=== PATIENT | male | born 1960 | race Caucasian/White ===

== ENCOUNTER 2017-10-19 02:47 | Inpatient (IN) | payer MEDICARE, OTHER ==
[~2017-10-19] VITALS: Ht 175.3 cm; Wt 141.4 kg
[2017-10-19 05:10] VITALS: BP 171/86; PULSE 93; RESP 18; TEMP 97.7; O2SAT 97
[2017-10-19] MEDS ORDERED: ALUMINUM/MAGNESIUM/SIMETH 30 ML CUP PO PRN (06:15)
[2017-10-19] MEDS ORDERED: ACETAMINOPHEN 325 MG TAB PO PRN (06:15)
[2017-10-19] MEDS ORDERED: MAGNESIUM HYDROXIDE SUSP 30 ML CUP PO PRN (06:15)
[2017-10-19] MEDS ORDERED: DULoxetine HCl DR 60 MG CAP PO SCH (13:15)
[2017-10-19] MEDS: busPIRone HCL 10 MG TAB PO SCH ×2 (13:15→21:36)
[2017-10-19] MEDS ORDERED: LORazepam 1 MG TAB PO PRN (13:15)
[2017-10-19] MEDS: METOPROLOL SUCCINATE 50 MG EXTENDED RELEASE TAB PO SCH (13:30)
[2017-10-19] MEDS ORDERED: hydrOXYzine HCL 50 MG TAB PO PRN (13:45)
[2017-10-19] MEDS: metFORMIN HCL 500 MG TAB PO SCH (18:00)
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
[2017-10-19] MEDS: INSULIN DETEMIR 100 UNITS/ML VIAL SQ SCH (21:00)
[2017-10-19] MEDS: DULoxetine HCl DR 60 MG CAP PO SCH (21:35)
[2017-10-19] MEDS: QUEtiapine FUMARATE 100 MG TAB PO SCH (21:35)
[2017-10-20 06:00] VITALS: BP 159/82; PULSE 65; RESP 20; TEMP 98.1; O2SAT 92
[2017-10-20] MEDS: DULoxetine HCl DR 60 MG CAP PO SCH ×2 (08:49→20:37)
[2017-10-20] MEDS: busPIRone HCL 10 MG TAB PO SCH ×2 (08:49→20:36)
[2017-10-20] MEDS: metFORMIN HCL 500 MG TAB PO SCH ×2 (08:49→17:40)
[2017-10-20] MEDS: METOPROLOL SUCCINATE 50 MG EXTENDED RELEASE TAB PO SCH (08:49)
[2017-10-20] MEDS ORDERED: POTA-163 PO (11:15)
[2017-10-20] MEDS ORDERED: LOSA100T PO (11:15)
[2017-10-20] MEDS ORDERED: TAMS5CAP PO (11:15)
[2017-10-20] MEDS ORDERED: AMLO10TA2 PO (11:15)
[2017-10-20] MEDS ORDERED: GLUCAGON 1 MG/ML VIAL OTHER PRN (12:15)
[2017-10-20] MEDS ORDERED: DEXTROSE 50% IN WATER 50 ML VIAL(D50) IV PUSH PRN (12:15)
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
--- NOTE | 2017-10-20 13:52 | HHI.PYPN ---
Subjective Remarks Patient was seen and case discussed with nursing. Patient describes his suicidal ideation before admission. He says he drove to a hotel sat in the parking lot before deciding to go to the hospital. He denies suicidal ideation however, he is looking about the unit and describes various methods of killing himself. Nursing and I and patient both agrees that he would benefit from a 1- 1. He describes various life stressors and an increase in mood swings and subsequent guilty feelings about his behavior. Mental Status Examination Appearance: Appropriate Consciousness: Alert Orientation: x4 Motor Activity: Normal gait Speech: Unremarkable Language: Adequate Fund of Knowledge: Adequate Attention and Concentration: Adequate Memory: Unremarkable Mood: Sad, Anxious Affect: Anxious Thought Process & Associations: Intact Thought Content: Appropriate Hallucination Type: None Suicidal Ideation: No Suicidal Plan: Yes Homicidal Ideation: No Homicidal Plan: No Homicidal Intention: No Insight: Fair Judgment: Impulsive Results Vitals/IOs Vital Signs Date Time Temp Pulse Resp B/P (MAP) Pulse Ox O2 Delivery O2 Flow Rate FiO2 10/20/17 06:00 98.1 65 20 159/82 (517) 92 Assessment & Plan Problem List: (1) Major depressive disorder, recurrent severe without psychotic features ICD Codes: F33.2 - Major depressive disorder, recurrent severe without psychotic features Assessment & Plan Order 1-1 Justification for Cont. Inpt. Patient would decompensate in a less restrictive setting Hector Kearney DO Oct 20, 2017 13:52
[2017-10-20 13:59] LABS: AUTOMATED NEUTROPHIL # 6.1 TH/MM3 (1.8-7.7); BASOPHIL # 0.1 TH/MM3 (0-0.2); BASOPHIL % 0.6 % (0.0-2.0); EOSINOPHIL # 0.4 TH/MM3 (0-0.4); EOSINOPHIL % 4.3 % (0.0-4.0); HEMOGLOBIN 15.4 GM/DL (13.0-17.0); LYMPH % 29.2 % (9.0-44.0); MEAN CELL VOLUME 91.2 FL (80.0-100.0); MEAN CORPUSCULAR HEMOGLOBIN 31.3 PG (27.0-34.0); MEAN CORPUSCULAR HGB CONC 34.3 % (32.0-36.0); MEAN PLATELET VOLUME 9.1 FL (7.0-11.0); MONO % 6.6 % (0.0-8.0); MONOCYTE # 0.7 TH/MM3 (0-0.9); NEUT % 59.3 % (16.0-70.0); PLATELET COUNT 286 TH/MM3 (150-450); RED BLOOD COUNT 4.93 MIL/MM3 (4.50-5.90); RED CELL DISTRIBUTION WIDTH 14.1 % (11.6-17.2); WHITE BLOOD COUNT 10.3 TH/MM3 (4.0-11.0)
[2017-10-20 14:24] LABS: BICARBONATE 29.7 MEQ/L (21.0-32.0); BLOOD UREA NITROGEN 10 MG/DL (7-18); CALCIUM 9.8 MG/DL (8.5-10.1); CHLORIDE 102 MEQ/L (98-107); CREATININE 1.12 MG/DL (0.60-1.30); GLOMERULAR FILTRATION RATE 68 ML/MIN (>89); GLUCOSE,RANDOM 142 MG/DL (74-106); SODIUM (NA) 142 MEQ/L (136-145)
[2017-10-20] MEDS ORDERED: LOPERAMIDE HCL 2 MG CAP PO PRN (14:45)
[2017-10-20] MEDS: CHOLESTYRAMINE 4 GM PACKET PO SCH (16:49)
[2017-10-20] MEDS: INSULIN ASPART SUPPLEMENTAL SCALE SQ SCH ×2 (17:00→20:38)
[2017-10-20 18:21] VITALS: BP 165/85; PULSE 97; RESP 19; TEMP 98.6; O2SAT 96
[2017-10-20] MEDS ORDERED: cloNIDine HCL 0.1 MG TAB PO PRN (18:45)
[2017-10-20 18:46] VITALS: BP 189/90; PULSE 95
[2017-10-20] MEDS: TAMSULOSIN HCL 0.4 MG CAP PO SCH (20:36)
[2017-10-20] MEDS: QUEtiapine FUMARATE 100 MG TAB PO SCH (20:36)
[2017-10-20] MEDS: POTASSIUM CHLORIDE 20 MEQ CONTROLLED RELEASE TAB PO SCH (20:36)
[2017-10-20] MEDS: ATORVASTATIN 40 MG TAB PO SCH (20:37)
[2017-10-20] MEDS: INSULIN DETEMIR 100 UNITS/ML VIAL SQ SCH (21:00)
[2017-10-21 05:38] VITALS: BP 148/65; PULSE 71; RESP 16; TEMP 97.4; O2SAT 96
[2017-10-21 07:18] LABS: CHOLESTEROL/ HDL RATIO 3.8 RATIO; HDL CHOLESTEROL 33.4 MG/DL (40.0-60.0)
[2017-10-21] MEDS: INSULIN ASPART SUPPLEMENTAL SCALE SQ SCH (07:42)
--- NOTE | 2017-10-21 08:50 | HHI.PYPN ---
Subjective Remarks Patient was seen and case discussed with nursing. Patient now has a one-to- one. Patient notes he has improved that he is no longer thinking of various means of ending his life on the unit. He denies any ideation now or at night. He has made up with his visited him yesterday. Affect is quite anxious. Tolerating his medications well Mental Status Examination Appearance: Appropriate Consciousness: Alert Orientation: Person, Place, Date/Time Motor Activity: Normal gait Speech: Unremarkable Language: Adequate Fund of Knowledge: Adequate Attention and Concentration: Adequate Memory: Unremarkable Mood: Sad, Anxious Affect: Sad, Anxious Thought Process & Associations: Intact, Linear Thought Content: Appropriate Hallucination Type: None Delusion Type: None Suicidal Ideation: No Suicidal Plan: No Suicidal Intention: No Homicidal Ideation: No Homicidal Plan: No Homicidal Intention: No Insight: Fair Judgment: Impulsive Results Labs Test 10/20/17 13:05 10/20/17 13:10 10/21/17 06:15 Thyroid Stimulating Hormone 3rd Gen 1.390 uIU/ML White Blood Count 10.3 TH/MM3 Red Blood Count 4.93 MIL/MM3 Hemoglobin 15.4 GM/DL Hematocrit 45.0 % Mean Corpuscular Volume 91.2 FL Mean Corpuscular Hemoglobin 31.3 PG Mean Corpuscular Hemoglobin Concent 34.3 % Red Cell Distribution Width 14.1 % Platelet Count 286 TH/MM3 Mean Platelet Volume 9.1 FL Neutrophils (%) (Auto) 59.3 % Lymphocytes (%) (Auto) 29.2 % Monocytes (%) (Auto) 6.6 % Eosinophils (%) (Auto) 4.3 % Basophils (%) (Auto) 0.6 % Neutrophils # (Auto) 6.1 TH/MM3 Lymphocytes # (Auto) 3.0 TH/MM3 Monocytes # (Auto) 0.7 TH/MM3 Eosinophils # (Auto) 0.4 TH/MM3 Basophils # (Auto) 0.1 TH/MM3 CBC Comment DIFF FINAL Differential Comment Blood Urea Nitrogen 10 MG/DL Creatinine 1.12 MG/DL Random Glucose 142 MG/DL Calcium Level 9.8 MG/DL Sodium Level 142 MEQ/L Potassium Level 3.7 MEQ/L Chloride Level 102 MEQ/L Carbon Dioxide Level 29.7 MEQ/L Anion Gap 10 MEQ/L Estimat Glomerular Filtration Rate 68 ML/MIN Triglycerides Level 127 MG/DL Cholesterol Level 127 MG/DL LDL Cholesterol 68 MG/DL HDL Cholesterol 33.4 MG/DL Cholesterol/HDL Ratio 3.80 RATIO Vitals/IOs Vital Signs Date Time Temp Pulse Resp B/P (MAP) Pulse Ox O2 Delivery O2 Flow Rate FiO2 10/21/17 05:38 97.4 71 16 148/65 (92) 96 Assessment & Plan Problem List: (1) Major depressive disorder, recurrent severe without psychotic features ICD Codes: F33.2 - Major depressive disorder, recurrent severe without psychotic features Assessment & Plan Continue current treatment plan. Consider DC of one-to-one tomorrow Justification for Cont. Inpt. Patient would decompensate in a less restrictive setting Hector Kearney DO Oct 21, 2017 08:50
[2017-10-21] MEDS: POTASSIUM CHLORIDE 20 MEQ CONTROLLED RELEASE TAB PO SCH ×2 (09:42→20:22)
[2017-10-21] MEDS: TAMSULOSIN HCL 0.4 MG CAP PO SCH ×2 (09:42→20:20)
[2017-10-21] MEDS: metFORMIN HCL 500 MG TAB PO SCH ×2 (09:42→18:00)
[2017-10-21] MEDS: DULoxetine HCl DR 60 MG CAP PO SCH ×2 (09:43→20:19)
[2017-10-21] MEDS: busPIRone HCL 10 MG TAB PO SCH ×2 (09:43→20:20)
[2017-10-21] MEDS: METOPROLOL SUCCINATE 50 MG EXTENDED RELEASE TAB PO SCH (09:43)
[2017-10-21 09:57] LABS: HEMOGLOBIN A1C 6.3 % (4.3-6.0)
--- NOTE | 2017-10-21 13:51 | HHI.PR ---
Subjective Remarks Follow up visit for HTN, DM, diarrhea. Nurse reports that patient's blood sugars have been well controlled, no other concerns or complaints. Patient seen and examined sitting in wheelchair in the day room in no acute distress. He denies any fevers, chills, nausea, vomiting or diarrhea. Reports that he has not had a bowel movement as of today, denies any abdominal pain or discomfort, still passing flatus. Objective Vitals Vital Signs Date Time Temp Pulse Resp B/P (MAP) Pulse Ox O2 Delivery O2 Flow Rate FiO2 10/21/17 05:38 97.4 71 16 148/65 (92) 96 10/20/17 18:46 95 189/90 (123) 10/20/17 18:21 98.6 97 19 165/85 (111) 96 Result Diagram: 10/20/17 1310 10/20/17 1310 Objective Remarks GENERAL: Well-developed, obese male in no acute distress. SKIN: Cool and dry. HEAD: Atraumatic. . EYES: Pupils equal round. No scleral icterus. No injection or drainage. ENT: Nose without bleeding, purulent drainage. Airway patent. NECK: Trachea midline. CARDIOVASCULAR: Regular rate and rhythm without murmurs, gallops, or rubs. RESPIRATORY: Clear to auscultation. Breath sounds equal bilaterally. No wheezes , rales, or rhonchi. GASTROINTESTINAL: Abdomen soft, non-tender, nondistended, obese. No guarding. + Bowel sounds in all quadrants MUSCULOSKELETAL: Extremities without clubbing, cyanosis, or edema. NEUROLOGICAL: Awake and alert, oriented x3. No obvious cranial nerve deficits. Motor and sensory grossly within normal limits. Normal speech. A/P Assessment and Plan 57-year-old male with a past medical history significant for interstitial cystitis, renal calculi, fibromyalgia, diabetes mellitus, hypertension, hyperlipidemia, sleep apnea, PTSD, OCD, depression, and anxiety who presented to the emergency department due to worsening depression and recent argument with his partner. Depression/anxiety PTSD/OCD -Treatment plan per psychiatry Hypertension Hyperlipidemia -BP on admission 171/86, noncompliant with medications for the past 3 days. -Currently on Norvasc and metoprolol for the moment, hypertensive yesterday afternoon, receive as needed clonidine. Resume losartan, 50 mg, if needed increase to his home dose of 100 mg. -Continue home dose statin Diabetes mellitus, well controlled -hemoglobin A1c 6.3 -High-fiber 2000 ADA diet. Blood sugars have been stable, will discontinue Accu-Cheks before meals and at bedtime and sliding scale. Blood sugars only once daily. -Continue Levemir 30 units at bedtime Fibromyalgia -Stable, continue home dose Cymbalta Sleep apnea -CPAP machine at bedtime with one-on-one sitter, okayed by psych Interstitial cystitis -Continue home dose Flomax Chronic diarrhea/IBS -Discussed with patient that this is likely the reason why he is on chronic potassium replacement due to constant diarrhea. TSH within normal limits -High-fiber diet, Imodium as needed, Questran 4 g at 4 PM to prevent interaction with medications. -No diarrhea today, continue current medications. DVT prophylaxis-ambulation Discussed with patient and nurse. Benito Delgadillo Oct 21, 2017 13:51
[2017-10-21] MEDS: CHOLESTYRAMINE 4 GM PACKET PO SCH (16:00)
[2017-10-21 16:50] VITALS: BP 165/80; PULSE 87; RESP 16; TEMP 98.8; O2SAT 95
[2017-10-21] MEDS: QUEtiapine FUMARATE 100 MG TAB PO SCH (20:21)
[2017-10-21] MEDS: ATORVASTATIN 40 MG TAB PO SCH (20:22)
[2017-10-21] MEDS: INSULIN DETEMIR 100 UNITS/ML VIAL SQ SCH (20:22)
[2017-10-22 06:17] VITALS: BP 145/66; PULSE 70; RESP 18; TEMP 97.9; O2SAT 97
[2017-10-22] MEDS ORDERED: LOSARTAN 50 MG TAB PO SCH (09:00)
[2017-10-22] MEDS: TAMSULOSIN HCL 0.4 MG CAP PO SCH (09:25)
[2017-10-22] MEDS: METOPROLOL SUCCINATE 50 MG EXTENDED RELEASE TAB PO SCH (09:25)
[2017-10-22] MEDS: POTASSIUM CHLORIDE 20 MEQ CONTROLLED RELEASE TAB PO SCH (09:25)
[2017-10-22] MEDS: DULoxetine HCl DR 60 MG CAP PO SCH (09:25)
[2017-10-22] MEDS: metFORMIN HCL 500 MG TAB PO SCH (09:25)
[2017-10-22] MEDS: busPIRone HCL 10 MG TAB PO SCH (09:26)
--- NOTE | 2017-10-22 10:21 | HHI.FPPN ---
Subjective Remarks no new complaints "i am feeling better" d/w bp and glucoses d/w RN Objective Vitals Vital Signs Date Time Temp Pulse Resp B/P (MAP) Pulse Ox O2 Delivery O2 Flow Rate FiO2 10/22/17 06:17 97.9 70 18 145/66 (92) 97 10/21/17 16:50 98.8 87 16 165/80 (108) 95 I/O 10/21/17 10/21/17 10/21/17 10/22/17 10/22/17 10/22/17 07:00 15:00 23:00 07:00 15:00 23:00 Intake Total 240 ml Balance 240 ml Intake Oral 240 ml Result Diagram: 10/20/17 1310 10/20/17 1310 Objective Remarks GENERAL: SKIN: Warm and dry. HEAD: Atraumatic. Normocephalic. EYES: Pupils equal and round. No scleral icterus. No injection or drainage. ENT: No nasal bleeding or discharge. Mucous membranes pink and moist. NECK: Trachea midline. No JVD. CARDIOVASCULAR: Regular rate and rhythm. RESPIRATORY: No accessory muscle use. Clear to auscultation. Breath sounds equal bilaterally. GASTROINTESTINAL: Abdomen soft, non-tender, nondistended. Hepatic and splenic margins not palpable. MUSCULOSKELETAL: Extremities without clubbing, cyanosis, or edema. No obvious deformities. NEUROLOGICAL: Awake and alert. No obvious cranial nerve deficits. Motor grossly within normal limits. Five out of 5 muscle strength in the arms and legs. Normal speech. PSYCHIATRIC: Appropriate mood and affect; insight and judgment normal. Medications and IVs Current Medications Medications (Trade) Dose Ordered Sig/Addie Route Start Time Stop Time Status Last Admin (Tylenol) 650 mg Q4H PRN PO 10/19/17 06:15 10/19/17 11:51 (Milk Of Magnesia Liq) 30 ml DAILY PRN PO 10/19/17 06:15 10/19/17 11:52 (Mag-Al Plus Susp Liq) 30 ml Q6H PRN PO 10/19/17 06:15 (Ativan) 1 mg Q6H PRN PO 10/19/17 13:15 (Buspar) 15 mg Q12HR PO 10/19/17 13:15 10/22/17 09:26 (SEROquel) 50 mg HS PO 10/19/17 21:00 10/21/17 20:21 (Cymbalta Dr) 60 mg BID PO 10/19/17 21:00 10/22/17 09:25 (Toprol Xl) 50 mg DAILY PO 10/19/17 13:30 10/22/17 09:25 (Glucophage) 500 mg BIDPC PO 10/19/17 18:00 10/22/17 09:25 (Levemir Inj) 30 units HS SQ 10/19/17 21:00 10/21/17 20:22 (Atarax) 50 mg Q6H PRN PO 10/19/17 13:45 (Norvasc) 10 mg DAILY PO 10/21/17 09:00 10/22/17 09:26 (KCl) 20 meq BID PO 10/20/17 21:00 10/22/17 09:25 (Flomax) 0.4 mg BID PO 10/20/17 21:00 10/22/17 09:25 (Lipitor) 40 mg HS PO 10/20/17 21:00 10/21/17 20:22 (D50w (Vial) Inj) 50 ml UNSCH PRN IV PUSH 10/20/17 12:15 (Glucagon Inj) 1 mg UNSCH PRN OTHER 10/20/17 12:15 (Questran 4 Gm Pkt) 4 gm DAILY@1600 PO 10/20/17 16:00 10/21/17 16:00 (Imodium) 2 mg Q4H PRN PO 10/20/17 14:45 (Catapres) 0.1 mg Q6H PRN PO 10/20/17 18:45 10/20/17 18:49 (Cozaar) 50 mg DAILY PO 10/22/17 09:00 10/22/17 09:26 A/P Assessment and Plan Assessment and Plan 57-year-old male with a past medical history significant for interstitial cystitis, renal calculi, fibromyalgia, diabetes mellitus, hypertension, hyperlipidemia, sleep apnea, PTSD, OCD, depression, and anxiety who presented to the emergency department due to worsening depression and recent argument with his partner. Suicidal/Depression/anxiety PTSD/OCD -Treatment plan per psychiatry Hypertension- increase cozaar to 100 mg qd Hyperlipidemia -BP on admission 171/86, noncompliant with medications for the past 3 days. -Currently on Norvasc and metoprolol for the moment, losartan 50 mg, if needed increase to his home dose of 100 mg. -Continue home dose statin Diabetes mellitus, well controlled -hemoglobin A1c 6.3 -High-fiber 2000 ADA diet. Blood sugars have been stable, will discontinue Accu-Cheks before meals and at bedtime and sliding scale. Blood sugars only once daily. -Continue Levemir 30 units at bedtime Fibromyalgia -Stable, continue home dose Cymbalta Sleep apnea -CPAP machine at bedtime with one-on-one sitter, okayed by psych Interstitial cystitis -Continue home dose Flomax Chronic diarrhea/IBS -Discussed with patient that this is likely the reason why he is on chronic potassium replacement due to constant diarrhea. TSH within normal limits -High-fiber diet, Imodium as needed, Questran 4 g at 4 PM to prevent interaction with medications. -c/o urgent diarrhea DVT prophylaxis-ambulation Discussed with patient and Psychiatrist. Manohar Ramos MD Oct 22, 2017 10:21
--- NOTE | 2017-10-22 13:22 | PD.TTN ---
Patient Problems 1. Discharge planning 2. Medication compliance 3. Knowledge deficit 4. Lack of coping skills Progress Toward Goals Provider Present: Dr. Minnie Alonso, Dr. Tricia Ortega Provider Input: portia rojas. If remains depressed will increase Seroquel Nurse(s) Input: Anxious, Angry, fixated on discharge, paranoid, easily excited. Psychiatric Counselors Present: Denisha Chen LCSW, Gaby Bashir, [facility], Ilan Oconnor Jr., [facility] Group Spec/RT/OT/HAYNES Present: ESTEBAN Miles Group Spec/RT/OT/HAYNES Input: Patient attends select group activities with good participation. Pt is pleasant and cooperative. Discharge Plan To be determined Documentation Scribe: Chasidy Adkins Oct 22, 2017 13:22
[2017-10-22] MEDS ORDERED: QUET1TAB8 PO (15:29)
[2017-10-22] MEDS ORDERED: LEVEMIR SQ (15:29)
[2017-10-22] MEDS ORDERED: LOSA100T PO (15:29)
[2017-10-22] MEDS ORDERED: METO1TAB9 PO (15:29)
[2017-10-22] MEDS ORDERED: CHOL4POW4 PO (15:29)
[2017-10-22] MEDS ORDERED: POTA-163 PO (15:29)
[2017-10-22] MEDS ORDERED: METF500 PO (15:29)
[2017-10-22] MEDS ORDERED: AMLO10TA2 PO (15:29)
[2017-10-22] MEDS ORDERED: TAMS5CAP PO (15:29)
[2017-10-22] MEDS ORDERED: ATOR40TA16 PO (15:29)
[2017-10-22] MEDS ORDERED: BUSP15TA PO (15:29)
[2017-10-22] MEDS ORDERED: DULO1CAP3 PO (15:29)
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
[2017-10-22] MEDS: CHOLESTYRAMINE 4 GM PACKET PO SCH (16:00)
[2017-10-23] MEDS ORDERED: LOSARTAN 50 MG TAB PO SCH (09:00)
== END 2017-10-22 16:50 | disposition home or self-care (01) | DRG 885 ==
LOC: H270 05:10 → H260 17:52
PROVIDERS: ADMIT Student in an Organized Health Care Education/Training Program; ATTEND Student in an Organized Health Care Education/Training Program
DX: F33.2 Major depressive disorder, recurrent severe without psychotic features (principal); N30.10 Interstitial cystitis (chronic) without hematuria; R45.851 Suicidal ideations; I10 Essential (primary) hypertension; M79.7 Fibromyalgia; E11.9 Type 2 diabetes mellitus without complications; Z79.4 Long term (current) use of insulin; G47.30 Sleep apnea, unspecified; E78.5 Hyperlipidemia, unspecified; K58.0 Irritable bowel syndrome with diarrhea; Z91.14 Patient's other noncompliance with medication regimen; Z87.891 Personal history of nicotine dependence
CPT/HCPCS: 80048; 80061; 82948; 83036; 84443; 85025